=== PATIENT | female | born 1950 | race Caucasian/White ===

== ENCOUNTER → 2024-10-04 | Outpatient (CLI) | payer OTHER, MEDICAID, SELFPAY ==
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
== END | disposition home or self-care (01) ==
PROVIDERS: PCP Family Medicine; Referring Provider Family Medicine; Visit Provider Family Medicine
DX: M25.811 Other specified joint disorders, right shoulder (principal); S49.91XS Unspecified injury of right shoulder and upper arm, sequela; V89.2XXS Person injured in unspecified motor-vehicle accident, traffic, sequela
CPT/HCPCS: 73030

== ENCOUNTER → 2024-12-24 | Outpatient (CLI) | payer MEDICARE, MEDICAID, SELFPAY ==
--- NOTE | 2024-12-24 12:00 | XR_ITS ---
Examination: Bone densitometry Date and time of exam:December 24, 2024 at 1211 hrs. Indications: Hysterectomy age 36 postmenopausal elbow shoulder wrist fractures, diabetic Technique: Lumbar spine and hip total bone mineralization values of an calculated. Peak reference and age match control results have been displayed. Findings: Lumbar spine total bone mineralization is0.801 gm/cm2. This is 2.2 standard deviations below peak reference. This is 0.1 standard deviations above age-matched controls. Hip total bone mineralization is 0.629 gm/cm2 This is 2.6 standard deviations below peak reference. This is 0.8 standard deviations below age-matched controls Impression: There is osteopenia based on lumbar spine measurements. There is osteoporosis based on hip measurements
== END | disposition home or self-care (01) ==
PROVIDERS: Referring Provider Family Medicine; Visit Provider Family Medicine
DX: Z13.820 Encounter for screening for osteoporosis (principal); M85.80 Other specified disorders of bone density and structure, unspecified site; M81.0 Age-related osteoporosis without current pathological fracture
CPT/HCPCS: 77080

== ENCOUNTER → 2025-02-06 | Outpatient (CLI) | payer MEDICARE, MEDICAID, SELFPAY ==
--- NOTE | 2025-02-06 15:30 | XR_ITS ---
Examination: Soft tissue neck Technique: Grayscale sonographic images soft tissue neck Exam date and time: February 06, 2025 1559 hrs. Indications: Right neck pain beginning one month ago Findings: Lymph node at the area concern right neck 11 x 5 x 8 mm Impression: Lymph node at the area of concern right neck 11 x 5 x 8 mm, consider CT soft tissue neck post intravenous contrast follow-up
== END | disposition home or self-care (01) ==
PROVIDERS: PCP Family Medicine; Referring Provider Otolaryngology Facial Plastic Surgery; Visit Provider Otolaryngology Facial Plastic Surgery
DX: R22.1 Localized swelling, mass and lump, neck (principal)
CPT/HCPCS: 76536

== ENCOUNTER → 2025-02-28 | Outpatient (CLI) | payer MEDICARE, MEDICAID, SELFPAY ==
[2025-02-28 09:08] LABS: Alanine Aminotransferase 15 U/L (10-49); Albumin, Serum 4.3 gm/dL (3.4-4.8); Albumin/Globulin Ratio 2.3 (1.2-2.2); Alkaline Phosphatase 94 U/L (46-116); Anion Gap 7 (7-16); Aspartate Amino Transferase 20 U/L (0-34); BUN/Creatinine Ratio 16 Ratio (12-20); Bilirubin,Total 0.4 mg/dL (0.3-1.2); Blood Urea Nitrogen 13 mg/dL (9-23); Calcium 9.2 mg/dL (8.3-10.6); Calcium (Corrected) 9.2 mg/dL (8.5-10.1); Chloride 107 mMol/L (98-107); Creatinine (Component) 0.8 mg/dL (0.6-1.3); Globulin 1.9 gm/dL (2.3-3.5); Glucose 89 mg/dL (74-106); Osmolality,Calculated 287 (275-295); Parathyroid Hormone Intact 83.6 pg/ml (18.5-88.0); Potassium 4.1 mMol/L (3.4-5.1); Sodium 145 mMol/L (136-145); Total Protein 6.2 gm/dL (5.7-8.2); eGFR > 60 See Note
[2025-03-06 13:48] LABS: Alpha-1-Globulin 0.2 g/dL (0.2-0.3); Alpha-2-Globulin 0.7 g/dL (0.5-0.9); Beta-1-Globulin 0.3 g/dL (0.4-0.6); Beta-2-globulin 0.2 g/dL (0.2-0.5); Gamma Globulin 0.7 g/dL (0.8-1.7)
[2025-03-07 06:38] LABS: Protein, total, serum 6.1 g/dL (6.1-8.1)
== END | disposition home or self-care (01) ==
LOC: COPL 06:57
PROVIDERS: PCP Family Medicine; Referring Provider Nurse Practitioner Family; Visit Provider Nurse Practitioner Family
DX: M81.0 Age-related osteoporosis without current pathological fracture (principal)
CPT/HCPCS: 36415; 80053; 82306; 83970; 84155; 84165; 86334

== ENCOUNTER → 2025-03-25 | Outpatient (CLI) | payer MEDICARE, MEDICAID, SELFPAY ==
--- NOTE | 2025-03-25 09:00 | XR_ITS ---
Examination: CT soft tissue neck, with intravenous contrast. 2-D coronal reconstructions. 2-D sagittal reconstructions. Date and time of exam :March 25, 2025 0904 hours INDICATIONS: Lump in the right side of the neck note is beginning 2 months ago. CTDI: vol (mGy):10.8 DLP: (mGycm):17.6 Technique: 1.25 mm axial sections of the neck of the obtained. Coronal and sagittal reconstructions have been obtained. Intravenous contrast administered 50 cc Isovue-370. Low dose protocols were performed. One or more of the following dose reduction techniques were used; automated exposure control, adjustment of the mA and/or KV according to patient size, use of iterative reconstruction technique. Findings: Maxillary antra are clear Symmetrical nasopharynx oropharynx Symmetrical parotid glands Symmetrical submandibular glands The larynx appears normal No pathologic lymphadenopathy IMPRESSION: No pathologic lymphadenopathy Recommend 6 month follow-up ultrasound soft tissue neck
== END | disposition home or self-care (01) ==
LOC: SCAT 08:38
PROVIDERS: PCP Family Medicine; Referring Provider Physician Assistant; Visit Provider Physician Assistant
DX: K11.1 Hypertrophy of salivary gland (principal)
CPT/HCPCS: 70491; A4649; Q9967

== ENCOUNTER 2025-04-10 11:44 | Emergency (ER) | payer MEDICARE, MEDICAID, SELFPAY ==
[2025-04-10 11:45] VITALS: PULSE 85; RESP 16; O2SAT 99; BMI 33.0
[2025-04-10 11:50] VITALS: BP 167/75; PULSE 65; RESP 19; TEMP 37.1; O2SAT 99
--- NOTE | 2025-04-10 12:11 | XR_ITS ---
Examination: CT brain head without contrast. 2-D sagittal coronal reconstructions Date and time of exam:April 10, 2025 at 12:26 PM INDICATIONS: Onset altered mental status today CTDI: vol (mGy):45.5 DLP: (mGycm):891 Technique: Multiple CT axial sections of the brain have been obtained, 5 mm slice thickness. Contrast has not been administered. 2-D sagittal, coronal reconstructions have been obtained Low dose protocols were performed. One or more of the following dose reduction techniques were used; automated exposure control, adjustment of the mA and/or KV according to patient size, use of iterative reconstruction technique. Findings: No significant ventricular enlargement. Frontal atrophy Intra-axial or extra-axial hemorrhage density is not seen. No mass effect or midline shift Basal cisterns are not remarkable. Fourth ventricle is midline. Cranial vault intact. Impression: Negative for acute hemorrhage, mass effect or midline shift If symptoms persist, consider brain MRI follow-up
--- NOTE | 2025-04-10 12:11 | XR_ITS ---
Examination: AP chest single view Technique one AP portable upright chest single view Date and time: April 10, 2025 at 1234 hours Comparison February 16, 2024 INDICATIONS: Altered mental status today. FINDINGS: Normal heart size No aspiration pneumonia Prominent osteopenia IMPRESSION: Negative for aspiration pneumonia
--- NOTE | 2025-04-10 12:11 | EKG_ITS ---
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
--- NOTE | 2025-04-10 12:12 | PD.EDAMS ---
Altered Mental Status RME/HPI General Chief Complaint: Altered Mental Status Stated Complaint: AMS Time Seen by Provider: 04/10/25 11:46 Arrival date/time: 04/10/25 11:44 RME / HPI RME / HPI narrative: 74-year-old female patient with significant history of chronic pain syndrome, hypothyroidism hypertension osteoporosis, was sent to us by family via EMS for evaluation regarding confusion. Patient received infusion for osteoporosis yesterday, and since then since last night, patient been complaining of not feeling well body aches. Earlier today patient was noted to have a fever of 102 according to the daughter and then later on noticed to be confused. Patient is denying any cough denies any abdominal pain denies any dysuria denies any other complaints. On evaluation patient was answering question with some episodes of confusion. She kept telling us that she was given COVID infusion instead. Related Data Home Medications ?Medication ?Instructions ?Recorded ?Confirmed ascorbic acid (vitamin C) 500 mg 2 tab PO QDAY ##0 07/14/17 06/11/18 tablet (Vitamin C) duloxetine 60 mg capsule,delayed 60 mg PO QDAY #0 caps 07/14/17 06/11/18 release (Cymbalta) ferrous sulfate 325 mg (65 mg 325 mg PO QDAY #0 tabs 07/14/17 06/11/18 iron) tablet (Feosol) gabapentin 600 mg tablet 600 mg PO TID #0 tabs 07/14/17 06/11/18 lisinopril 10 mg tablet 10 mg PO QDAY #0 tabs 07/14/17 06/11/18 lorazepam 1 mg tablet 0.5 mg PO BID #0 tabs 07/14/17 06/11/18 mirtazapine 15 mg tablet (Remeron) 15 mg PO HS #0 tabs 07/14/17 06/11/18 nystatin 100,000 unit/gram topical 1 appln TOP BID ##0 07/14/17 06/11/18 cream omeprazole 40 mg capsule,delayed 40 mg PO QDAY ##0 07/14/17 06/11/18 release buspirone 15 mg tablet 15 mg PO BID 01/18/18 06/11/18 levothyroxine 50 mcg capsule 50 mcg PO QDAY 01/18/18 06/11/18 multivitamin with minerals-folic 1 tab PO QDAY 01/18/18 06/11/18 acid 80 mcg chewable tablet (Centrum MultiGummies) ranitidine HCl 300 mg capsule 300 mg PO QDAY 01/18/18 06/11/18 vitamin B12 500 mcg-folic acid 400 1 tab PO QDAY 01/18/18 06/11/18 mcg tablet Previous Rx's ?Medication ?Instructions ?Recorded gabapentin 100 mg capsule 100 mg PO Q8H #21 caps 09/24/22 Allergies Allergy/AdvReac Type Severity Reaction Status Date / Time adhesive tape Allergy Mild BLISTER Verified 03/31/21 14:00 banana Allergy Mild Hives Verified 03/31/21 14:00 Penicillins Allergy Mild Hives Verified 03/31/21 14:00 ibuprofen (From Motrin) Allergy Verified 04/10/25 13:28 Review of Systems Review of Systems Narrative Review of Systems: Review of system reviewed and within normal limits except mentioned in HPI ED Exam Narrative Physical exam: VITAL SIGNS: Reviewed. GENERAL APPEARANCE: Alert and oriented x 2,, follows simple commands, no acute distress, anxious, crying HEAD AND FACE: Non-traumatic. ENT: PERRL, pink conjunctivitis, eyelid no trauma, Mucous membrane moist. NECK: Supple, nontender, no nuchal rigidity. CHEST: No tenderness, no crepitus, no paradoxical movement, no retractions. LUNGS: Clear, well ventilated, symmetric, no rales, no wheezing, no ronchi, no stridor, good breath sounds bilaterally. HEART: Regular rate, regular rhythm, no murmur, no gallops. ABDOMEN: Soft, positive bowel sounds, nondistended, no guarding, nontender, no rebound, no masses, RECTAL: Deferred. GENITAL: Deferred. NEUROLOGICAL: Gross motor function intact sensory function intact, Appropriate for age. MUSCULOSKELETAL: low back nontender, full range of motion. EXTREMITIES: Nontender, full range of motion. SKIN: Color pink, dry, no rash, no lacerations, no abrasions, no contusions. LYMPHATICS: Deferred. Course Quality Measures none Orders Category Date Time Status Bedside COVID-19 Antigen Test NOW Care 04/10/25 12:19 Active Bedside Influenza A&B Antigen Test NOW Care 04/10/25 12:20 Completed EKG (ED ONLY) *Do not use* NOW Care 04/10/25 12:[address] head/brain wo con Stat Exams 04/10/25 12:11 Completed EKG (ED Only) Stat Exams 04/10/25 12:11 Draft XR chest 1V Stat Exams 04/10/25 12:11 Completed Blood Culture (Lab) Stat Lab 04/10/25 12:40 Received CBC Stat Lab 04/10/25 12:03 Completed Comprehensive Metabolic Panel Stat Lab 04/10/25 12:03 Completed Lactate (Lactic Acid) Stat Lab 04/10/25 12:03 Completed Partial Thromboplastin Time Stat Lab 04/10/25 12:03 Completed Procalcitonin Stat Lab 04/10/25 12:03 Completed Troponin I Stat Lab 04/10/25 12:03 Completed UA, C/S IF [Urinalysis, C/S if Indicated] Stat Lab 04/10/25 13:11 Completed HYDROcodone/APAP 10/325 [[place] 10/325] Med 04/10/25 12:19 Discontinued 1 tab PO X1 ONE Ketorolac Inj [Toradol Inj] Med 04/10/25 14:43 Discontinued 30 mg IVP X1 ONE Sodium Chloride 0.9% 1000 ml [Ns] 1,000 ml Med 04/10/25 12:21 Discontinued IV 999 mls/hr Vital Signs Vital signs: Vital Signs Temperature 98.7 F 04/10/25 11:50 Pulse Rate 65 04/10/25 11:50 Respiratory Rate 19 04/10/25 11:50 Blood Pressure 167/75 H 04/10/25 11:50 Pulse Oximetry (%) 99 04/10/25 11:50 Oxygen Delivery Method Room Air 04/10/25 11:50 Altered Mental Status MDM Narrative MDM Narrative:: 74-year-old female patient with significant history of chronic pain syndrome, hypothyroidism hypertension osteoporosis, was sent to us by family via EMS for evaluation regarding confusion. Patient received infusion for osteoporosis yesterday, and since then since last night, patient been complaining of not feeling well body aches. Earlier today patient was noted to have a fever of 102 according to the daughter and then later on noticed to be confused. Patient is denying any cough denies any abdominal pain denies any dysuria denies any other complaints. On evaluation patient was answering question with some episodes of confusion. She kept telling us that she was given COVID infusion instead. EKG as interpreted by me shows sinus rhythm, ventricular rate of 75 bpm, no ST segment elevation or depression noted. CT scan of the head came back unremarkable. Chest x-ray came back unremarkable. The rest of the laboratory workup also came back normal urinalysis no UTI Patient was given IV fluids for hydration [place] and Toradol On multiple reevaluation prior to discharge patient was noted to be alert and oriented x 4 answers questions appropriately making her own decisions also. Patient data External records reviewed:: None Clinical information provided by:: patient and family Social determinants that could affect healthcare access:: none Patient has the following chronic illnesses:: Chronic pain syndrome, hypothyroidism, hypertension How is presenting disease/condition affected by chronic disease/condition?: exacerbated by Evaluation data The following diagnostics were reviewed and interpreted by me:: lab results, radiology exam(s) and EKG tracing(s) Lab and/or radiology exams considered but not ordered:: None Interpretation Summary: See results in MDM Medications / Prescriptions Medications or Prescriptions considered but not ordered:: None Medication administrations:: Medication Administration History Discontinued Medications Hydrocodone Bitart/Acetaminophen (Hydrocodone/Apap 10/325 Tab) 1 tab PO X1 ONE Stop: 04/10/25 12:20 Last Admin: 04/10/25 12:47 Dose: 1 tab Documented By: DO Sodium Chloride (Ns) 1,000 mls @ 999 mls/hr IV .Q1H1M ONE Stop: 04/10/25 13:21 Last Infusion: 04/10/25 13:49 Dose: Infused Documented By: Admin: 04/10/25 12:48 Dose: 999 mls/hr Documented By: DO Ketorolac Tromethamine (Ketorolac Inj 30 Mg/Ml Vial) 30 mg IVP X1 ONE Stop: 04/10/25 14:44 Last Admin: 04/10/25 15:01 Dose: 30 mg Documented By: DO Toradol IV fluids and [place] Consultations Consultation(s) initiated? (list below): No Diagnosis Differential diagnosis altered mental status: altered mental status and delirium Most likely diagnosis given after review of the tests above:: Adverse effect of medication, confusion Admission Indicated Admission indicated?: not indicated Admission Request Was there a request for admission?: No Disposition Plan Disposition Plan: Discharge Discharge Attestation Discharge Attestation: The patient and all family members were given an opportunity to ask questions and understood the discharge instructions. Discharge instructions specifically effects, indications for sooner follow up or return to the emergency department, and the expected course of current diagnosis. Patient condition: Stable Discharge Plan Plan Patient Disposition: HOME (Self Care) Discharge Disposition comment: Stable Prescriptions/Referrals Prescriptions/Med Rec: No Action gabapentin 600 MG tablet 600 mg PO TID Qty: 0 omeprazole 40 MG capsule,delayed release(DR/EC) 40 mg PO QDAY Qty: 0 ascorbic acid (vitamin C) [Vitamin C] 500 MG tablet 2 tab PO QDAY Qty: 0 ferrous sulfate [Feosol] 1 TAB tablet 325 mg PO QDAY Qty: 0 nystatin 15 GM cream 1 appln TOP BID Qty: 0 lisinopril 10 MG tablet 10 mg PO QDAY Qty: 0 mirtazapine [Remeron] 15 MG tablet 15 mg PO HS Qty: 0 lorazepam 1 MG tablet 0.5 mg PO BID Qty: 0 duloxetine [Cymbalta] 60 MG capsule,delayed release(DR/EC) 60 mg PO QDAY Qty: 0 ranitidine HCl 300 mg Capsule 300 mg PO QDAY buspirone 15 mg Tablet 15 mg PO BID levothyroxine 50 mcg Capsule 50 mcg PO QDAY vitamin C23-avzer acid 500-400 mcg Tablet 1 tab PO QDAY multivit with min-folic acid [Centrum MultiGummies] 80 mcg Tablet,Chewable 1 tab PO QDAY gabapentin 100 mg capsule 100 mg PO Q8H Qty: 21 0RF Referrals: Mt Berkowitz MD [Primary Care Provider] - In 1 week Problem List Clinical Impression: Acute confusion, Adverse effects of medication Patient/Caregiver Discharge Instructions Discharge Activity: activity as tolerated Education Materials: ED Confusion Additional Instructions: Thank you for the opportunity for serving you today. You are stable for discharged . You are advised to: Follow-up with your PCP in 1 to 2 days Return to ED for worsening of symptoms Increase oral fluids Print Language: Lao Stand Alone Forms: Shayla Award Info., Patient Portal Info Letter
[2025-04-10 12:29] LABS: Lactate (Lactic Acid) 1.3 mMol/L (0.4-2.0)
[2025-04-10 12:34] LABS: Basophils # (Auto) 0.1 Thou/mm3 (0.0-0.2); Basophils % (Auto) 1 % (0-2.5); Eosinophils % (Auto) 1 % (0-10); Hematocrit 38.8 % (36.0-46.0); Hemoglobin 13.6 g/dL (12.0-16.0); Immature Granulocytes % (Auto) 1 % (0-0); Immature Granulocytes Auto 0.04 Thou/mm3 (0.00-0.00); Lymphocytes # (Auto) 0.6 Thou/mm3 (1.0-4.8); Lymphocytes % (Auto) 10 % (10-50); Mean Corpuscular HGB Conc 35.1 g/dl (31.0-37.0); Mean Corpuscular Hemoglobin 31.8 pg (25.0-35.0); Mean Corpuscular Volume 91 fL (80-100); Monocytes # (Auto) 0.5 Thou/mm3 (0.0-0.8); Monocytes % (Auto) 8 % (0-12); Neutrophils # (Auto) 4.9 Thou/mm3 (1.8-7.7); Neutrophils % (Auto) 81 % (37-80); Nucleated Red Blood Cell % 0 /100 WBC (0); Platelet Count 193 Thou/mm3 (140-440); RDW Standard Deviation 43.2 fL (36.4-46.3); Red Blood Count 4.28 Miln/mm3 (4.00-5.20)
[2025-04-10] MEDS: HYDROcodone/APAP 10/325 TAB PO (12:47)
[2025-04-10] MEDS: SODIUM CHLORIDE 0.9% 1000 ML 1,000 ML 999 ML IV (12:48)
[2025-04-10 13:04] LABS: Partial Thromboplastin Time 27.5 Seconds (22.0-36.0)
[2025-04-10 13:16] LABS: Alanine Aminotransferase 22 U/L (10-49); Albumin/Globulin Ratio 2.1 (1.2-2.2); Alkaline Phosphatase 94 U/L (46-116); Anion Gap 10 (7-16); BUN/Creatinine Ratio 13 Ratio (12-20); Bilirubin,Total 0.4 mg/dL (0.3-1.2); Blood Urea Nitrogen 10 mg/dL (9-23); Calcium 8.6 mg/dL (8.3-10.6); Calcium (Corrected) 8.6 mg/dL (8.5-10.1); Carbon Dioxide 26.1 mMol/L (20.0-31.0); Chloride 104 mMol/L (98-107); Creatinine (Component) 0.8 mg/dL (0.6-1.3); Estimated Creatinine Clearance 47.6 mL/min (>60); Globulin 1.9 gm/dL (2.3-3.5); Glucose 102 mg/dL (74-106); Osmolality,Calculated 278 (275-295); Potassium 3.8 mMol/L (3.4-5.1); Procalcitonin 0.05 ng/ml (0.0-0.49); Sodium 140 mMol/L (136-145); Total Protein 5.9 gm/dL (5.7-8.2); Troponin I < 0.020 ng/mL (0.0-0.045); eGFR > 60 See Note
[2025-04-10 13:17] LABS: Collection Type, Urine Clean Catch
[2025-04-10 13:23] LABS: Bilirubin,Urine Negative (Negative); Blood,Urine Negative (Negative); Clarity,Urine Clear (Clear/Hazy); Color,Urine Lt-Yellow (Lt Yel-Yel); Culture Indicated,Urine Not Indicated; Glucose, Urine Negative (Negative); Ketones,Urine Negative (Negative); Leukocyte Esterase,Urine Negative (Negative); Nitrite,Urine Negative (Negative); PH,Urine 7.5 (5.0-7.0); Protein,Urine Negative (Neg - Trace); RBC,Urine 2 /hpf (0-3); Specific Gravity,Urine 1.014 (1.001-1.035); Squamous Epithelial Cell,Urine 2 /hpf (0-5); Urobilinogen,Urine Negative mg/dL (0.0-1.0); WBC,Urine 1 /hpf (0-5)
[2025-04-10 13:28] VITALS: BP 141/86; PULSE 70; RESP 19; TEMP 36.9; O2SAT 98
--- NOTE | 2025-04-10 15:00 | PC.NURSE ---
pt is alert and oriented at this time. per family member pt is not confused anymore and is acting normally. pt able to answer questions appropriately and able follow commands. beverley burlapper at bedside to speak with pt and family
[2025-04-10] MEDS: KETOROLAC INJ 30 MG/ML VIAL IVP (15:01)
[2025-04-10 15:45] VITALS: BP 145/82; PULSE 76; RESP 18; TEMP 37.3; O2SAT 94
== END 2025-04-10 15:45 | disposition home or self-care (01) ==
PROVIDERS: Nurse Practitioner Family; Emergency Provider Emergency Medicine; PCP Family Medicine
DX: R41.0 Disorientation, unspecified (principal); T50.905A Adverse effect of unspecified drugs, medicaments and biological substances, initial encounter; G89.4 Chronic pain syndrome; E03.9 Hypothyroidism, unspecified; I10 Essential (primary) hypertension; M81.0 Age-related osteoporosis without current pathological fracture; M85.88 Other specified disorders of bone density and structure, other site; G31.9 Degenerative disease of nervous system, unspecified
CPT/HCPCS: 36415; 70450; 71045; 80053; 81001; 83605; 84145; 84484; 85025; 85730; 87040; 87400; 87811; 96361; 96374; 99284; J1885; J7030; A9270

== ENCOUNTER 2025-05-17 14:42 | Emergency (ER) | payer MEDICARE, MEDICAID, SELFPAY ==
[2025-05-17 14:57] VITALS: BP 127/75; PULSE 69; RESP 19; TEMP 36.4; O2SAT 94; BMI 33.0
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
== END 2025-05-17 17:17 | disposition home or self-care (01) ==
PROVIDERS: Emergency Provider Family Medicine; PCP Family Medicine
DX: S19.9XXA Unspecified injury of neck, initial encounter (principal); S79.912A Unspecified injury of left hip, initial encounter; V49.40XA Driver injured in collision with unspecified motor vehicles in traffic accident, initial encounter; M25.562 Pain in left knee; R07.9 Chest pain, unspecified; Y93.89 Activity, other specified; Y92.481 Parking lot as the place of occurrence of the external cause; Z96.642 Presence of left artificial hip joint
CPT/HCPCS: 71046; 72040; 73502; 73503; 73562; 99284; A9270

== ENCOUNTER → 2025-08-26 | Outpatient (CLI) | payer MEDICARE, MEDICAID, SELFPAY ==
[2025-08-26 08:16] LABS: Collection Type, Urine Clean Catch
[2025-08-26 08:30] LABS: Basophils # (Auto) 0.1 Thou/mm3 (0.0-0.2); Basophils % (Auto) 2 % (0-2.5); Eosinophils # (Auto) 0.2 Thou/mm3 (0.0-0.5); Eosinophils % (Auto) 4 % (0-10); Hematocrit 42.2 % (36.0-46.0); Hemoglobin 14.2 g/dL (12.0-16.0); Immature Granulocytes Auto 0.01 Thou/mm3 (0.00-0.00); Lymphocytes # (Auto) 1.8 Thou/mm3 (1.0-4.8); Lymphocytes % (Auto) 30 % (10-50); Mean Corpuscular HGB Conc 33.6 g/dl (31.0-37.0); Mean Corpuscular Hemoglobin 31.8 pg (25.0-35.0); Mean Corpuscular Volume 94 fL (80-100); Monocytes # (Auto) 0.6 Thou/mm3 (0.0-0.8); Monocytes % (Auto) 10 % (0-12); Neutrophils # (Auto) 3.2 Thou/mm3 (1.8-7.7); Neutrophils % (Auto) 54 % (37-80); Nucleated Red Blood Cell # 0.00 Thou/mm3 (0.00-0.00); Nucleated Red Blood Cell % 0 /100 WBC (0); Platelet Count 263 Thou/mm3 (140-440); RDW Standard Deviation 44.7 fL (36.4-46.3); Red Blood Count 4.47 Miln/mm3 (4.00-5.20); White Blood Count 5.8 Thou/mm3 (3.6-11.0)
[2025-08-26 08:37] LABS: Bilirubin,Urine Negative (Negative); Blood,Urine Negative (Negative); Clarity,Urine Clear (Clear/Hazy); Color,Urine Lt-Yellow (Lt Yel-Yel); Culture Indicated,Urine Not Indicated; Glucose, Urine Negative (Negative); Ketones,Urine Negative (Negative); Leukocyte Esterase,Urine Negative (Negative); Nitrite,Urine Negative (Negative); PH,Urine 6.0 (5.0-7.0); Protein,Urine Negative (Neg - Trace); RBC,Urine 5 /hpf (0-3); Specific Gravity,Urine 1.011 (1.001-1.035); Squamous Epithelial Cell,Urine < 1 /hpf (0-5); Urobilinogen,Urine Negative mg/dL (0.0-1.0); WBC,Urine 1 /hpf (0-5)
[2025-08-26 08:44] LABS: Glucose Estimated Average 103 mg/dL (80-131); Hemoglobin A1C 5.2 % Hgb (4.8-6.0)
[2025-08-26 08:50] LABS: Alanine Aminotransferase 13 U/L (10-49); Albumin, Serum 4.5 gm/dL (3.4-4.8); Albumin/Globulin Ratio 3.0 (1.2-2.2); Alkaline Phosphatase 59 U/L (46-116); Anion Gap 10 (7-16); Aspartate Amino Transferase 21 U/L (0-34); BUN/Creatinine Ratio 14 Ratio (12-20); Bilirubin,Total 0.5 mg/dL (0.3-1.2); Blood Urea Nitrogen 11 mg/dL (9-23); Calcium 9.3 mg/dL (8.3-10.6); Calcium (Corrected) 9.3 mg/dL (8.5-10.1); Carbon Dioxide 29.4 mMol/L (20.0-31.0); Cardiac Risk Estimate 2.9 RATIO (3.7-5.6); Chloride 108 mMol/L (98-107); Cholesterol 162 mg/dL (132-200); Creatinine (Component) 0.8 mg/dL (0.6-1.3); Free T4 (Free Thyroxine) 1.56 ng/dL (0.89-1.76); Globulin 1.5 gm/dL (2.3-3.5); Glucose 94 mg/dL (74-106); HDL Cholesterol 56 mg/dL (40-60); LDL Cholesterol,Calculated 89 mg/dL (0-130); Osmolality,Calculated 291 (275-295); Potassium 4.4 mMol/L (3.4-5.1); Sodium 147 mMol/L (136-145); Thyroid Stimulating Hormone 1.71 uIU/mL (0.55-4.78); Total Protein 6.0 gm/dL (5.7-8.2); Triglycerides 83 mg/dL (30-150); eGFR > 60 See Note
[2025-08-26 08:58] LABS: Creatinine MALB Rnd Ur 40 mg/dL (30-125); Microalbumin, Random Urine < 3 mg/L (0-300)
[2025-09-01 07:00] LABS: T3,Total* 78 ng/dL (76-181)
== END | disposition home or self-care (01) ==
PROVIDERS: PCP Nurse Practitioner Family; Referring Provider Nurse Practitioner Family; Visit Provider Nurse Practitioner Family
DX: Z00.00 Encounter for general adult medical examination without abnormal findings (principal); E11.40 Type 2 diabetes mellitus with diabetic neuropathy, unspecified; E03.9 Hypothyroidism, unspecified; I12.9 Hypertensive chronic kidney disease with stage 1 through stage 4 chronic kidney disease, or unspecified chronic kidney disease; E11.22 Type 2 diabetes mellitus with diabetic chronic kidney disease; N18.9 Chronic kidney disease, unspecified
CPT/HCPCS: 36415; 80053; 80061; 81001; 82043; 82570; 83036; 84439; 84443; 84480; 85025

== ENCOUNTER 2025-09-22 09:44 | Emergency (ER) | payer MEDICARE, MEDICAID, SELFPAY ==
--- NOTE | 2025-09-22 10:06 | XR_ITS ---
Examination: CT brain head without contrast. 2-D sagittal coronal reconstructions Date and time of exam: September 22, 2025, 10:34 a.m. INDICATIONS: Patient tripped and fell today with injury to the head, head pain COMPARISON: April 10, 2025 CTDI: vol (mGy): 46.3 DLP: (mGycm): 860 Technique: Multiple CT axial sections of the brain have been obtained, 5 mm slice thickness. Contrast has not been administered. 2-D sagittal, coronal reconstructions have been obtained Low dose protocols were performed. One or more of the following dose reduction techniques were used; automated exposure control, adjustment of the mA and/or KV according to patient size, use of iterative reconstruction technique. Findings: No significant ventricular enlargement. Frontal atrophy Intra-axial or extra-axial hemorrhage density is not seen. No mass effect or midline shift Basal cisterns are not remarkable. Fourth ventricle is midline. Cranial vault intact. Impression: Negative for acute hemorrhage, mass effect or midline shift
--- NOTE | 2025-09-22 10:06 | XR_ITS ---
Examination: Shoulder, right, 3 views Technique: Shoulder AP internal rotation, AP external rotation, Y view shoulder, 3 views Exam date and time : September 22, 2025, 10:10 a.m. INDICATIONS: Right shoulder pain after falling today. FINDINGS: Severe osteopenia No shoulder fracture or dislocation Advanced narrowing glenohumeral joint IMPRESSION: No shoulder fracture or dislocation
--- NOTE | 2025-09-22 10:06 | XR_ITS ---
Examination: Right elbow 3 views Technique: Elbow AP, oblique, lateral 3 views Exam date and time: September 22, 2025, 10:21 a.m INDICATIONS: Patient fell today with into the elbow, elbow pain. FINDINGS: Severe osteopenia Moderate elbow osteoarthritis No definite acute fracture IMPRESSION: No definite acute fracture Given the severe osteopenia, recommend short-term follow-up elbow films as clinically warranted.
--- NOTE | 2025-09-22 10:06 | XR_ITS ---
Examination: CT cervical spine without contrast 2-D sagittal reconstructions 2-D coronal reconstructions 3-D reconstructions. Exam date and time: September 22, 2025, 1034 hours INDICATIONS: Patient tripped and fell today with injury to the neck, neck pain CTDI:vol (mGy) 14 DLP: (mGycm) 283 Technique: Multiple 2 mm axial sections of the cervical spine have been obtained. The coronal and sagittal reconstructions have been obtained. 3-D reconstructions have been obtained. Low dose protocols were performed. One or more of the following dose reduction techniques were used; automated exposure control, adjustment of the mA and/or KV according to patient size, use of iterative reconstruction technique. Findings: Axial sections demonstrate intact base of the skull. C1 exhibit satisfactory relationship to the odontoid. No acute cervical vertebral body fracture seen. Alignment posterior spinous processes satisfactory. Advanced degenerative disc disease C5-C6, C6-C7 Impression: No acute cervical fracture.
--- NOTE | 2025-09-22 10:08 | PD.EDFALL ---
ED Fall Injury RME/HPI General Chief Complaint: Fall Stated Complaint: FALL; HIT R) ELBOW, R) SIDE OF HEAD, R) HIP Time Seen by Provider: 09/22/25 10:10 Source: patient Arrival date/time: 09/22/25 09:44 75-year-old female with a history of hypertension presents to the emergency room with a chief complaint of right elbow pain, right shoulder pain, and a headache after a ground-level fall that occurred while getting out of the car 1 hour ago. Mode of arrival: ambulatory Limitations: no limitations Related Data Home Medications ?Medication ?Instructions ?Recorded ?Confirmed ascorbic acid (vitamin C) 500 mg 2 tab PO QDAY ##0 07/14/17 06/11/18 tablet (Vitamin C) duloxetine 60 mg capsule,delayed 60 mg PO QDAY #0 caps 07/14/17 06/11/18 release (Cymbalta) ferrous sulfate 325 mg (65 mg 325 mg PO QDAY #0 tabs 07/14/17 06/11/18 iron) tablet (Feosol) gabapentin 600 mg tablet 600 mg PO TID #0 tabs 07/14/17 06/11/18 lisinopril 10 mg tablet 10 mg PO QDAY #0 tabs 07/14/17 06/11/18 lorazepam 1 mg tablet 0.5 mg PO BID #0 tabs 07/14/17 06/11/18 mirtazapine 15 mg tablet (Remeron) 15 mg PO HS #0 tabs 07/14/17 06/11/18 nystatin 100,000 unit/gram topical 1 appln TOP BID ##0 07/14/17 06/11/18 cream omeprazole 40 mg capsule,delayed 40 mg PO QDAY ##0 07/14/17 06/11/18 release buspirone 15 mg tablet 15 mg PO BID 01/18/18 06/11/18 levothyroxine 50 mcg capsule 50 mcg PO QDAY 01/18/18 06/11/18 multivitamin with minerals-folic 1 tab PO QDAY 01/18/18 06/11/18 acid 80 mcg chewable tablet (Centrum MultiGummies) ranitidine HCl 300 mg capsule 300 mg PO QDAY 01/18/18 06/11/18 vitamin B12 500 mcg-folic acid 400 1 tab PO QDAY 01/18/18 06/11/18 mcg tablet Previous Rx's ?Medication ?Instructions ?Recorded gabapentin 100 mg capsule 100 mg PO Q8H #21 caps 09/24/22 cyclobenzaprine 5 mg tablet 5 mg PO Q8H PRN muscle spasm #14 05/17/25 tabs Allergies Allergy/AdvReac Type Severity Reaction Status Date / Time adhesive tape Allergy Mild BLISTER Verified 09/22/25 09:48 Penicillins Allergy Mild Hives Verified 09/22/25 09:48 ibuprofen (From Motrin) Allergy Verified 09/22/25 09:48 Review of Systems Review of Systems Systems Reviewed: All systems reviewed, normal except as documented Constitutional Constitutional: Reports system reviewed and no additional complaints, except as documented, Denies fatigue, Denies fever(s), Denies headache(s) and Denies weakness Eyes Eyes: Reports system reviewed and no additional complaints, except as documented, Denies blurry vision and Denies change in vision ENT Ears, Nose, Mouth, and Throat: Reports system reviewed and no additional complaints, except as documented, Denies otalgia, Denies headache(s), Denies nasal congestion, Denies throat swelling and Denies vertigo Cardiovascular Cardiovascular: Reports system reviewed and no additional complaints, except as documented, Denies chest pain, Denies dyspnea and Denies dyspnea on exertion Respiratory Respiratory: Reports system reviewed and no additional complaints, except as documented, Denies chest congestion, Denies cough, Denies dyspnea, Denies dyspnea on exertion and Denies wheezing Gastrointestinal Gastrointestinal: Reports system reviewed and no additional complaints, except as documented, Denies abdominal pain, Denies cramping, Denies nausea and Denies vomiting Genitourinary Genitourinary: Reports system reviewed and no additional complaints, except as documented Musculoskeletal Musculoskeletal: Reports system reviewed and no additional complaints, except as documented, Reports arthralgias, Denies back pain, Reports joint swelling and Reports limited range of motion Integumentary/Breasts Skin/Breast: Reports system reviewed and no additional complaints, except as documented and Denies wounds Neurologic Neurologic: Reports system reviewed and no additional complaints, except as documented, Denies confusion, Denies headache(s), Denies lack of coordination, Denies vertigo and Denies weakness Psychiatric Psychiatric: Reports system reviewed and no additional complaints, except as documented, Denies anxiety, Denies confusion, Denies depression, Denies paranoia, Denies suicidal ideation and Denies tactile hallucinations Endocrine Endocrine: Reports system reviewed and no additional complaints, except as documented and Denies fatigue Hematologic/Lymphatic Hematologic/Lymphatic: Reports system reviewed and no additional complaints, except as documented and Denies lymphadenopathy Allergic/Immunologic Allergic/Immunologic: Reports system reviewed and no additional complaints, except as documented, Denies throat swelling, Denies urticaria and Denies wheezing Past Medical History Past Medical History NEUROLOGIC: Positive Head Trauma; Negative Neurological Disorders or Seizures CARDIAC: Positive Cardiac Disorders and Hypertension; Negative Congestive Heart Failure RESPIRATORY: Negative Chronic Obstructive Pulmonary Disease (COPD) GASTROINTESTINAL: Positive Gastrointestinal Disorders, Hiatal Hernia and Gastroesophageal Reflux Disease GENITOURINARY: Negative Genitourinary Disorders or Renal Disease MUSCULOSKELETAL: Positive Musculoskeletal Disorders and Osteoporosis ENT: Positive Head Trauma ENDOCRINE: Positive Endocrine Disorders and Diabetes Mellitus Type 2; Negative Diabetes Mellitus Type 1 HEMATOLOGIC: Negative Blood Disorders PSYCHO/SOCIAL: Positive Anxiety OTHER HISTORY: Positive Chicken Pox and Measles; Negative Blood Transfusions, Blood Transfusion Reaction or Anesthesia Reactions Family History FAMILY HISTORY: Positive Family Cardiac Disorders and Family Cancer Surgical History SURGICAL: Positive Abdominal Surgery, Gastric Bypass Surgery, Joint Replacement and Hysterectomy Social History SMOKING STATUS: Never smoker ED Exam General Limitations: Present no limitations General appearance: Present alert and in no apparent distress Head Head exam: Present atraumatic Eye Eye exam: Present normal appearance, PERRL and EOMI ENT ENT exam: Present normal exam, normal oropharynx and mucous membranes moist Neck Neck exam: Present normal inspection, full ROM and trachea midline Chest Chest inspection: Present normal inspection and symmetric chest wall rise Respiratory Respiratory exam: Present normal lung sounds bilaterally Cardiovascular Cardiovascular exam: Present regular rate, normal rhythm and normal heart sounds Abdominal Exam Abdominal exam: Present soft and normal bowel sounds Extremities Exam Extremities exam: Present normal inspection and full ROM Back Exam Back exam: Present normal inspection and full ROM Neurological Exam Neurological exam: Present alert, oriented X3 and CN II-XII intact Psychiatric Psychiatric exam: Present normal affect and normal mood Skin Skin exam: Present warm, dry, intact and normal color Course Quality Measures none Orders Category Date Time Status CT cervical spine wo con Stat Exams 09/22/25 10:[address] head/brain wo con Stat Exams 09/22/25 10:06 Completed XR elbow comp RT min 3V Stat Exams 09/22/25 10:06 Completed XR shoulder RT min 2V Stat Exams 09/22/25 10:06 Completed Fall MDM Narrative MDM Narrative:: 75-year-old female with a history of hypertension presents to the emergency room with a chief complaint of right elbow pain, right shoulder pain, and a headache after a ground-level fall that occurred while getting out of the car 1 hour ago. Patient is hemodynamically stable and in no apparent distress Physical examination shows tenderness to the patient's right elbow right shoulder with palpation. The patient has full range of motion. The patient is also complaining of a headache. Patient states she did not lose consciousness there is no vomiting and there is no contusions or evidence of any head trauma. CT of the head and brain as well as CT of the cervical spine were negative for any acute findings. X-ray of the elbow and shoulder were negative for any acute fracture or dislocation Patient was discharged and educated to follow-up with primary care provider in the next 24 to 48 hours and return to the emergency room for any evidence of worsening signs or symptoms Patient data External records reviewed:: [facility] previous records Clinical information provided by:: patient Social determinants that could affect healthcare access:: none Patient has the following chronic illnesses:: No chronic illness How is presenting disease/condition affected by chronic disease/condition?: no chronic disease Evaluation data The following diagnostics were reviewed and interpreted by me:: lab results and radiology exam(s) Lab and/or radiology exams considered but not ordered:: Labs and radiology exams considered and ordered Interpretation Summary: CT head and brain-no acute findings CT cervical spine-no acute fracture or dislocation X-ray right elbow-no acute fracture or dislocation X-ray right shoulder-no acute fracture or dislocation Medications / Prescriptions Medications or Prescriptions considered but not ordered:: Medication given Medication administrations:: No medication given Consultations Consultation(s) initiated? (list below): No Diagnosis Fall Differential Diagnosis: concussion with loss of consciousness, concussion without loss of consciousness and other (Closed head injury) Most likely diagnosis given after review of the tests above:: Closed head injury Admission Indicated Admission indicated?: not indicated Admission Request Was there a request for admission?: No Disposition Plan Disposition Plan: Discharge Discharge Attestation Discharge Attestation: The patient and all family members were given an opportunity to ask questions and understood the discharge instructions. Discharge instructions specifically effects, indications for sooner follow up or return to the emergency department, and the expected course of current diagnosis. Patient condition: Stable Discharge Plan Plan Patient Disposition: HOME (Self Care) Discharge Disposition comment: Stable Prescriptions/Referrals Prescriptions/Med Rec: No Action gabapentin 600 MG tablet 600 mg PO TID Qty: 0 omeprazole 40 MG capsule,delayed release(DR/EC) 40 mg PO QDAY Qty: 0 ascorbic acid (vitamin C) [Vitamin C] 500 MG tablet 2 tab PO QDAY Qty: 0 ferrous sulfate [Feosol] 1 TAB tablet 325 mg PO QDAY Qty: 0 nystatin 15 GM cream 1 appln TOP BID Qty: 0 lisinopril 10 MG tablet 10 mg PO QDAY Qty: 0 mirtazapine [Remeron] 15 MG tablet 15 mg PO HS Qty: 0 lorazepam 1 MG tablet 0.5 mg PO BID Qty: 0 duloxetine [Cymbalta] 60 MG capsule,delayed release(DR/EC) 60 mg PO QDAY Qty: 0 ranitidine HCl 300 mg Capsule 300 mg PO QDAY buspirone 15 mg Tablet 15 mg PO BID levothyroxine 50 mcg Capsule 50 mcg PO QDAY vitamin Q46-[id number] acid 500-400 mcg Tablet 1 tab PO QDAY multivit with min-folic acid [Centrum MultiGummies] 80 mcg Tablet,Chewable 1 tab PO QDAY gabapentin 100 mg capsule 100 mg PO Q8H Qty: 21 0RF cyclobenzaprine 5 mg tablet 5 mg PO Q8H PRN (Reason: muscle spasm) Qty: 14 0RF Problem List Clinical Impression: Closed head injury, Acute shoulder pain Patient/Caregiver Discharge Instructions Education Materials: ED Head Injury (Adult), ED Shoulder Contusion Additional Instructions: Please follow-up with your primary care provider in the next [address] of your head and neck was negative for any acute fracture or dislocation Your x-ray of your shoulder and your ankle was negative for any acute findings For any evidence of worsening signs or symptoms return to the emergency room immediately Print Language: Slovenian Stand Alone Forms: Shayla Award Info., Work/School Release, Patient Portal Info Letter
== END 2025-09-22 11:54 | disposition home or self-care (01) ==
LOC: SERX 11:22
PROVIDERS: Emergency Provider Emergency Medicine; PCP Family Medicine
DX: S09.90XA Unspecified injury of head, initial encounter (principal); M25.511 Pain in right shoulder; M25.521 Pain in right elbow; M54.2 Cervicalgia; W18.30XA Fall on same level, unspecified, initial encounter
CPT/HCPCS: 70450; 72125; 73030; 73080; 99282

== ENCOUNTER → 2025-09-29 | Outpatient (CLI) | payer MEDICARE, MEDICAID, SELFPAY ==
--- NOTE | 2025-09-29 08:25 | XR_ITS ---
Examination: Right hip AP, lateral, AP pelvis 3 views Technique: Hip AP lateral, AP pelvis, 3 views Exam date and time: September 29, 2025, 0836 hours INDICATIONS: Right hip pain 1 year FINDINGS: Moderate osteopenia No right hip fracture or dislocation Mild narrowing right hip joint Left hip arthroplasty with satisfactory alignment IMPRESSION: Mild narrowing right hip joint.
== END | disposition home or self-care (01) ==
PROVIDERS: PCP Family Medicine; Referring Provider Nurse Practitioner Family; Visit Provider Nurse Practitioner Family
DX: M25.851 Other specified joint disorders, right hip (principal); Z96.642 Presence of left artificial hip joint
CPT/HCPCS: 73502